=== PATIENT | male | born 1970 | race Hispanic/Latino ===

== ENCOUNTER → 2019-02-07 | Outpatient (CLI) | payer OTHER ==
[~2019-02-07] MED LIST: IOPAMIDOL 370 MG/ML 200 ML INFUS..BTL INJ ONE; SODIUM CHLORIDE 0.9% 50ML 50 ML ONE
--- NOTE | 2019-02-07 16:16 | Diagnostic Imaging Report ---
EXAMINATION: CT of the abdomen and pelvis with contrast. TECHNIQUE: Spiral CT images of the abdomen and pelvis were performed from the lung bases to the lesser trochanters after the intravenous administration of 100 cc of Isovue-370. Coronal and sagittal reformatted images were obtained. COMPARISON: None. CLINICAL HISTORY:Left lower quadrant pain DISCUSSION: ABDOMEN/PELVIS: LOWER THORAX:Unremarkable. HEPATOBILIARY: Subcentimeter hypoattenuating lesion in hepatic segment 7 is too small to further characterize but likely to represent a small cyst. No additional focal hepatic lesion or intrahepatic biliary ductal dilatation. The gallbladder is unremarkable. SPLEEN: No splenomegaly. PANCREAS: No focal masses or ductal dilatation. ADRENALS: No adrenal nodules. KIDNEYS/URETERS: Subcentimeter hypoattenuating lesion in the left kidney is too small to further characterize but likely to represent a small cyst. No calculi, solid mass lesion, or hydronephrosis. PELVIC ORGANS/BLADDER: Urinary bladder is incompletely distended but otherwise unremarkable. Prostate and seminal vesicles appear normal. PERITONEUM/RETROPERITONEUM: No ascites. No pneumoperitoneum. LYMPH NODES: No pelvic sidewall, retroperitoneal, or mesenteric lymphadenopathy. VESSELS: Abdominal aorta, major branch vessels, and iliac arterial systems are well-visualized and patent. Portal vein, splenic vein, and central superior mesenteric vein are patent. GI TRACT: The large bowel is notable for multiple diverticula along the descending and sigmoid colon without wall thickening or adjacent inflammatory change. The appendix is normal. No small bowel dilatation to suggest obstruction. BONES AND SOFT TISSUE: No focal soft tissue abnormalities. Nonspecific nonaggressive appearing lucency in the right iliac wing measures 1.5 cm in diameter.. Mild degenerative disc changes and facet arthropathy of the lumbar spine IMPRESSION: No acute intra-abdominal or pelvic CT abnormalities. Large bowel diverticulosis without findings of diverticulitis. Nonaggressive appearing lucency in the right iliac wing probably represents a benign lipomatous or cystic lesion, particularly in the absence of a known diagnosis of malignancy. MRI of the pelvis with and without contrast is suggested for definitive characterization. Signed by: Dr. Mike Evans M.D. on 02/07/2019 4:13 PM
== END ==
LOC: CT 15:00
PROVIDERS: ATTEND Family Medicine
DX: R10.32 Left lower quadrant pain (principal)
CPT/HCPCS: 74177; Q9967

== ENCOUNTER → 2019-02-26 | Outpatient (CLI) | payer OTHER ==
[~2019-02-26] MED LIST changes: +GADOBENATE DIMEGLUMINE 1 ML IV ONE; -IOPAMIDOL 370 MG/ML 200 ML INFUS..BTL INJ ONE; -SODIUM CHLORIDE 0.9% 50ML 50 ML ONE
--- NOTE | 2019-02-26 14:09 | Diagnostic Imaging Report ---
MRI of the pelvis with and without contrast. History: Lesion of pelvic bone. Technique: Multiplanar multisequence MRI of the pelvis with and without intravenous contrast. 17 cc gadolinium contrast material was administered. Findings: Nonaggressive appearing fat signal intensity lesion in the right iliac wing adjacent to the sacroiliac joint best seen on axial image 11 consistent with a lipoma. No abnormal contrast enhancement is seen. No acute fracture, subluxation or avascular necrosis. No bone marrow edema is seen. The visualized muscles are normal in size, signal intensity and morphology. The visualized neurovascular bundles are intact. The urinary bladder and remainder of the visualized pelvic structures are unremarkable. No free pelvic fluid or pelvic lymphadenopathy is seen. Impression: Nonaggressive appearing fat signal intensity lesion in the right iliac wing adjacent to the sacroiliac joint best seen on axial image 11 consistent with a lipoma. No abnormal contrast enhancement is seen. Signed by: Dr. Kwame Rick M.D. on 02/26/2019 2:06 PM
== END ==
LOC: MRI 10:50
PROVIDERS: ATTEND Family Medicine
DX: M89.9 Disorder of bone, unspecified (principal)
CPT/HCPCS: 72197; A9577

== ENCOUNTER → 2021-12-23 | Day surgery (SDC) | payer OTHER ==
[~2021-12-23] MED LIST changes: +ADDERALL 30 MG30 MG PO; +AMBIEN10 MG PO; +BUPIVACAINE 0.25% 30ML SDV ONE; +DEXAMETHASONE SOD PHOS INJ 4 MG/ML SDV ONE; +FENTANYL CITRATE/PF 100MCG/2 ML INJ ONE; -GADOBENATE DIMEGLUMINE 1 ML IV ONE; +LIDOCAINE 2%/ EPINEPHRINE 20ML MDV ONE; +LIDOCAINE HCL 2% JELLY 5 ML TUBE ONE; +LIDOCAINE HCL 2% LOCAL INJ 5 ML SDV VIAL INJ ONE; +LOSARTAN POTASS25 MG PO; +MIDAZOLAM HCL 2 MG/2 ML VIAL ONE; +ONDANSETRON HCL INJ 2MG/ML 2ML 2 MG/ML VIAL ONE; +POVIDONE IODINE 0.05% 0.05 % ML PO ONE; +PROPOFOL IV EMULSION 10 MG/ML 20 ML VIAL ONE; +ROPIVACAINE 0.5% 5 MG/ML 30 ML SDV ONE; +SEVOFLURANE INHAL SOLN 250 ML PEN BTL ONE; +ZYRTEC10 MG PO
[2021-12-23 14:35] VITALS: BP 130/87
== END | disposition home or self-care (01) ==
LOC: OR 09:31
PROVIDERS: ATTEND Orthopaedic Surgery
DX: S83.232A Complex tear of medial meniscus, current injury, left knee, initial encounter (principal); S83.282A Other tear of lateral meniscus, current injury, left knee, initial encounter; M22.42 Chondromalacia patellae, left knee; M67.52 Plica syndrome, left knee; I10 Essential (primary) hypertension; X58.XXXA Exposure to other specified factors, initial encounter; Z88.8 Allergy status to other drugs, medicaments and biological substances; Z01.810 Encounter for preprocedural cardiovascular examination; Z01.812 Encounter for preprocedural laboratory examination; Z20.822 Contact with and (suspected) exposure to COVID-19; Z79.899 Other long term (current) drug therapy
CPT/HCPCS: 29879; 29882; 93005; C1713 ×3; J0690; J1100; J2001 ×3; J2250; J2405; J2704; J2795; J3010; U0002